=== PATIENT | female | born 1975 | race Two or more races ===

== ENCOUNTER 2019-09-01 16:49 | Emergency (ER) | payer OTHER ==
[~2019-09-01] VITALS: Ht 162.6 cm; Wt 65.8 kg
[~2019-09-01 16:49] MED LIST: CIPRO500 MG PO; PYRIDIUM DS200 MG PO
== END 2019-09-01 20:30 | disposition home or self-care (01) ==
LOC: ER 16:49
DX: R31.0 Gross hematuria (principal); R30.0 Dysuria; M54.5 Low back pain

== ENCOUNTER 2021-07-13 08:00 | Outpatient (CLI) | payer OTHER | END 2021-07-13 08:30 | disposition home or self-care (01) | LOC: PPH VACUNA 08:00 | PROVIDERS: ATTEND Emergency Medicine Pediatric Emergency Medicine | DX: Z23 Encounter for immunization (principal) ==